=== PATIENT | female | born 1985 | race Caucasian/White ===

== ENCOUNTER 2021-04-22 13:05 | Emergency (ER) | payer OTHER ==
[~2021-04-22] VITALS: Ht 160 cm; Wt 76.0 kg
[2021-04-22 13:15] VITALS: BP 121/78
--- NOTE | 2021-04-22 14:37 | NUR ---
DC EDUCATION PROVIDED TO PT BY DA RICKS. PT TO DC WITH RN.
== END 2021-04-22 14:38 | disposition home or self-care (01) ==
LOC: ED 14:30
DX: S93.402A Sprain of unspecified ligament of left ankle, initial encounter (principal); S16.1XXA Strain of muscle, fascia and tendon at neck level, initial encounter; S39.012A Strain of muscle, fascia and tendon of lower back, initial encounter; V49.49XA Driver injured in collision with other motor vehicles in traffic accident, initial encounter; Y93.89 Activity, other specified; Y92.410 Unspecified street and highway as the place of occurrence of the external cause; Y99.8 Other external cause status
CPT/HCPCS: 72020; 72050; 72110; 99284